=== PATIENT | female | born 1960 | race Caucasian/White ===

== ENCOUNTER 2018-01-15 11:17 | Emergency (ER) | payer OTHER, SELFPAY ==
[2018-01-15 11:27] VITALS: BP 160/79; PULSE 70; RESP 18; TEMP 36.6; O2SAT 68; BMI 101.4
--- NOTE | 2018-01-15 11:42 | DI.US.S_ITS ---
PROCEDURE: US PERIPH VENOUS LOW EXTREM LT INDICATIONS: PAIN, EDEMA TECHNIQUE: Real-time imaging, as well as color and pulse Doppler interrogation, were performed of the lower extremity deep veins from the inguinal ligament to the popliteal fossa. COMPARISON: None. FINDINGS: The deep veins are normally compressible, and free of intraluminal thrombus. Color and pulse Doppler demonstrate normal phasic intraluminal flow. There is normal augmentation response to distal compression maneuver. IMPRESSION: No visualized deep venous thrombosis. Dictated by: Kim Perez M.D. on 01/15/2018 at 12:34 Approved by: Kim Perez M.D. on 01/15/2018 at 12:35
[2018-01-15 12:14] LABS: Add Manual Diff / Slide Review NO; Basophils Percent Auto 0.3 % (0-2); Eosinophils Percent Auto 1.1 % (2-4); Hemoglobin 9.2 g/dL (12.0-16.0); Lymphocytes Percent Auto 18.6 % (25-40); Mean Corpuscular Hemoglobin 27.9 PG (26-34); Mean Corpuscular Volume 84.5 fL (80-100); Monocytes Percent Auto 5.1 % (3-14); Neutrophils Absolute Auto 6100 /uL (3000-5900); Neutrophils Percent Auto 74.9 % (50-75); Platelet Count 251 X10^3/uL (150-400); Red Blood Cell Count 3.31 X10^6/uL (4.0-5.2); Red Cell Distribution Width 14.8 % (11.6-14.8); White Blood Cell Count 8.2 X10^3/uL (4.5-11.0)
--- NOTE | 2018-01-15 13:22 | ED.EXTPRO ---
HPI - Extremity Problem General Chief complaint: Extremity Problem,Nontraumatic Stated complaint: LEFT LEG SWELLING Time Seen by Provider: 01/15/18 11:42 Source: patient Mode of arrival: ambulatory Limitations: no limitations History of Present Illness HPI Narrative: Patient presents to the emergency department today with a chief complaint of left calf swelling in the absence of injury for the past 2 days. She states actually much better now. She denies any redness or warmth at any point. She was recently admitted for an upper GI bleed a few weeks ago and by and large feels much better since then. She denies recent travel, injury or prior clots Complaint: extremity swelling Onset (ago): day(s) Pain Consistency: intermittent Location: left Quality: aching Radiation: none Relieving factors: nothing Exacerbating factors: nothing Associated symptoms: denies other symptoms Related Data Home Medications Medication Instructions Recorded Confirmed Iron (#SLOW RELEASE IRON) 50 mg PO QDAY #0 11/23/11 [MULTIVITAMIN ] #0 11/23/11 ascorbic acid (vitamin C) 1,000 mg PO QDAY #0 11/23/11 lisinopril 20 mg PO QDAY #0 12/23/17 Previous Rx's Medication Instructions Recorded omeprazole 40 mg OR QDAY #30 cap 12/25/17 sucralfate 1 gm PO QIDACHS #120 12/25/17 Allergies Allergy/AdvReac Type Severity Reaction Status Date / Time iron dextran complex Allergy Severe Abdominal Verified 01/15/18 11:32 [From Dexferrum] Pain Review of Systems Review of Systems All systems reviewed & are unremarkable except as noted in HPI and below Constitutional Denies chills, Denies fever(s), Denies lethargy and Denies weakness ENT Ears, Nose, Mouth, and Throat: Denies change in voice, Denies neck pain and Denies sore throat Cardiovascular Denies dyspnea and Denies dyspnea on exertion Respiratory Denies cough, Denies dyspnea, Denies dyspnea on exertion and Denies wheezing Genitourinary Denies hematuria, Denies flank pain, Denies urinary incontinence and Denies urinary urgency Musculoskeletal Denies neck pain Comments: Left leg swelling Neurologic Denies weakness Allergic/Immunologic Denies wheezing PFSH Social History Smoking Status: Never smoker Exam Const General: cooperative and well developed Nutritional Appearance: well nourished Orientation: alert, awake, oriented x3 and not confused HENMT Head: normocephalic and atraumatic Ears: external ears normal and TM's normal bilaterally Nose: external nose normal and No nasal discharge Face and sinus: sinuses nontender, face symmetric, no sinus tenderness and No dry mucous membranes Mouth: oral mucosae normal and moist mucous membranes Teeth and gingiva: dentition normal Throat: tonsils normal and uvula midline Chest Chest: normal inspection of the chest Resp Effort & Inspection: normal respiratory effort, able to speak in complete sentences, no respiratory distress and no use of accessory muscles Auscultation: clear to auscultation bilaterally, no rales, no rhonchi and no wheezes GI Inspection: non-distended Palpation: soft, no hepatosplenomegaly, No guarding, No pulsatile mass and No tender Auscultation: normal bowel sounds Extrem Left lower extremity: normal to inspection MDM - Extremity (Nontraumatic) Differential Diagnosis Likely cellulitis, superficial thrombophlebitis, lower extremity edema and deep vein thrombosis of lower extremity Lab Data Result diagrams: 01/15/18 12:03 Lab Results 01/15/18 Range/Units 12:03 WBC 8.2 (4.5-11.0) X10^3/uL RBC 3.31 L (4.0-5.2) X10^6/uL Hgb 9.2 L (12.0-16.0) g/dL Hct 28.0 L (36-46) % MCV 84.5 (80-100) fL MCH 27.9 (26-34) PG MCHC 33.0 (30-36) % RDW 14.8 (11.6-14.8) % Plt Count 251 (150-400) X10^3/uL Neut % (Auto) 74.9 (50-75) % Lymph % (Auto) 18.6 L (25-40) % [place] % (Auto) 5.1 (3-14) % Eos % (Auto) 1.1 L (2-4) % Baso % (Auto) 0.3 (0-2) % Neut # (Auto) 6100 H (9998-8392) /uL Imaging Data Venous US: Radiologist's impression: PROCEDURE: US PERIPH VENOUS LOW EXTREM LT INDICATIONS: PAIN, EDEMA TECHNIQUE: Real-time imaging, as well as color and pulse Doppler interrogation, were performed of the lower extremity deep veins from the inguinal ligament to the popliteal fossa. COMPARISON: None. FINDINGS: The deep veins are normally compressible, and free of intraluminal thrombus. Color and pulse Doppler demonstrate normal phasic intraluminal flow. There is normal augmentation response to distal compression maneuver. IMPRESSION: No visualized deep venous thrombosis. Dictated by: Kim Perez M.D. on 01/15/2018 at 12:34 Approved by: Kim Perez M.D. on 01/15/2018 at 12:35 Course Orders Ordered: ED Orders 01/15/18 11:42 US periph venous low extrem lt Stat 01/15/18 12:03 Complete Blood Count AUTO DIFF Stat Last Vital Signs Temp 97.8 F 01/15/18 11:27 Pulse 70 01/15/18 11:27 Resp 18 01/15/18 11:27 BP 160/79 H 01/15/18 11:27 Pulse Ox 68 L 01/15/18 11:27 Discharge Plan Departure Patient Disposition: Home, Self-Care Clinical Impression: Edema, peripheral Instructions: DI for Peripheral Edema, Unilateral Activity Restrictions/Additional Instructions: Please return to the emergency department for worsening or persistent symptoms *You have been diagnosed with [ lower extremity edema ] *What to do: Continue to elevate your left lower extremity and consider the use of a compressive dressing * continue to Take medications as directed *Follow up with your primary care provider tomorrow as planned *Return to ER if you should have [such as] [or] any new, worsening or concerning symptoms Prescriptions: No Action ascorbic acid (vitamin C) 500 MG tablet 1,000 mg PO QDAY Qty: 0 RF: 0 Iron (#SLOW RELEASE IRON) 50 mg PO QDAY Qty: 0 RF: 0 [MULTIVITAMIN ] Qty: 0 RF: 0 lisinopril 20 MG tablet 20 mg PO QDAY Qty: 0 RF: 0 sucralfate 1 GM tablet 1 gm PO QIDACHS Qty: 120 RF: 1 omeprazole 40 MG capsule,delayed release(DR/EC) 40 mg OR QDAY Qty: 30 RF: 2
[2018-01-15 13:25] VITALS: PULSE 62; RESP 16; O2SAT 100
== END 2018-01-15 13:30 | disposition home or self-care (01) ==
PROVIDERS: Emergency Provider Emergency Medicine
DX: R60.9 Edema, unspecified (principal)
CPT/HCPCS: 36415; 85025; 93971; 99282; 99284

== ENCOUNTER 2018-10-26 05:21 | Observation (INO) | payer OTHER, SELFPAY ==
[2018-10-26] VITALS (24 sets, daily range): BP systolic 76–152; BP diastolic 34–90; PULSE 61–84; RESP 11–18; TEMP 36.1–37.1; O2SAT 97–100; BMI 44.7; BMI 44.6
--- NOTE | 2018-10-26 05:50 | ED_ITS ---
HPI - GI Bleed General Chief complaint: GI Bleed Stated complaint: rectal bleeding Time Seen by Provider: 10/26/18 05:34 Source: patient and family Mode of arrival: ambulatory Limitations: no limitations History of Present Illness HPI Narrative: This is a 58-year-old female who comes in with complaint of black bowel movements. She states that she woke up this way not have a bowel movement and it was dark and blackish. She states that she had 3 episodes. She has a history of gastric bypass and had similar symptoms in the last year. She states she was here they took her to the OR and found to spots that she describes as ulcers bleeding on the stomach. Had cautery patient was placed on omeprazole or similar medication. She is not taking the omeprazole anymore. She is not taking any NSAIDs. She felt sort of pale and dizzy but no chest pain, shortness of breath. She has not had any vomiting. She is not feeling nauseated currently. She denies any tobacco, occasionally uses alcohol, denies any illi cit. Primary care is through the [facility]. Related Data Home Medications Medication Instructions Recorded Confirmed Iron (#SLOW RELEASE IRON) 50 mg PO QDAY #0 11/23/11 [MULTIVITAMIN ] #0 11/23/11 ascorbic acid (vitamin C) 1,000 mg PO QDAY #0 11/23/11 lisinopril 20 mg PO QDAY #0 12/23/17 Previous Rx's Medication Instructions Recorded omeprazole 40 mg OR QDAY #30 cap 12/25/17 sucralfate 1 gm PO QIDACHS #120 12/25/17 Allergies Allergy/AdvReac Type Severity Reaction Status Date / Time iron dextran complex Allergy Severe Abdominal Verified 01/15/18 11:32 [From Dexferrum] Pain Review of Systems Review of Systems ROS Unobtainable: All systems reviewed & are unremarkable except as noted in HPI and below Constitutional Denies chills, Denies fever(s), Denies lethargy and Reports weakness Cardiovascular Denies chest pain, Denies syncope, Denies rapid heart rate, Denies irregular heart rhythm, Reports lightheadedness, Denies palpitations, Denies dyspnea, Denies dyspnea on exertion and Denies orthopnea Respiratory Denies dyspnea and Denies dyspnea on exertion Gastrointestinal Gastrointestinal: Denies abdominal pain, Reports melena, Denies change in bowel habits, Denies constipation, Denies cramping, Denies diarrhea, Denies nausea and Denies vomiting Genitourinary Denies hematuria, Denies urinary frequency, Denies dysuria, Denies flank pain, R eports urinary incontinence (Occasionally, chronic) and Denies urinary urgency Musculoskeletal Denies back pain Neurologic Denies syncope and Reports weakness Endocrine Denies palpitations Hematologic/Lymphatic Denies easy bleeding and Denies easy bruising PFSH Medical History Gastric ulcer (Acute) Hypertension (Acute) Surgical History H/O gastric bypass (Acute) Social History Smoking Status: Never smoker alcohol intake: current substance use type: does not use Social History Smoking Status: Never smoker alcohol intake: current substance use type: does not use Exam Narrative Exam Narrative: GEN: Obese female, alert and oriented x 3, patient appears to be in mild distress. Patient does appear pale. HEENT: Atraumatic, pupils are equal round reactive to light, extraocular movements are intact, nares are clear, TMs are clear with no fluid, there is some conjunctival pallor. Throat is clear without any exudates, erythema, tonsillar enlargement or uvular deviation HEART: Regular rate and rhythm without murmur, clicks, rubs. No carotid bruits, pulses are equal in upper and lower extremities LUNGS:Lungs clear to auscultation, no wheezes, rales, crackles, chest moves symmetrically ABD:bowel sounds normal, soft, non-tender, no guarding, rebound, rigidity, no masses noted, no hepatosplenomegaly. Stool occult is positive for blood. Under OMEGA appreciate a does not have any active or bright red bleeding. :No CVA tenderness. MSCL: Non-tender, no muscle atrophy, muscles strength 5/5 upper and lower extremities, full range of motion, normal gait NEURO:CN 2-12 intact, sensation normal, reflexes 2/4 upper and lower extremities. finger nose finger test normal, heel villaseñor test normal, romberg normal Initial Vital Signs Initial Vital Signs: Vital Signs Temperature 97.7 F 10/26/18 05:23 Pulse Rate 70 10/26/18 05:23 Respiratory Rate 12 10/26/18 05:23 Blood Pressure 100/53 L 10/26/18 05:23 Pulse Oximetry 99 10/26/18 05:23 Course Orders Ordered: ED Orders 10/26/18 05:45 Complete Blood Count AUTO DIFF Stat Comprehensive Metabolic Panel Stat Lipase Stat Packed Cells Stat Partial Thromboplastin Time Stat Prothrombin Time INR Stat Type and Screen Stat Pantoprazole Sodium 80 mg/ (Sodium Chloride) 100 mls @ 10 mls/hr IV CONT RANULFO Last Admin: 10/26/18 06:09 Dose: 8 mg/hr, 10 mls/hr Sodium Chloride (Normal Saline 0.9%) 1,000 mls @ 150 mls/hr IV CONT RANULFO Last Admin: 10/26/18 05:59 Dose: 150 mls/hr Discontinued Medications Pantoprazole Sodium (Protonix) 80 mg IV NOW ONE Stop: 10/26/18 05:44 Last Admin: 10/26/18 05:58 Dose: 80 mg Vital Signs - 8 hr 10/26/18 05:23 10/26/18 06:01 10/26/18 06:28 Temperature 97.7 F Pulse Rate 70 66 62 Respiratory Rate 12 13 13 Blood Pressure 100/53 L Blood Pressure [Left Arm] 82/46 L 76/47 L Pulse Oximetry 99 100 100 10/26/18 06:36 Temperature Pulse Rate 61 Respiratory Rate 12 Blood Pressure Blood Pressure [Left Arm] 85/40 L Pulse Oximetry 99 MDM - GI Bleed Lab Data Attestation: I reviewed the patient's lab results. Result diagrams: 10/26/18 05:45 10/26/18 05:45 Lab Results 10/26/18 10/26/18 10/26/18 Range/Units 05:45 05:45 05:45 WBC 5.8 (4.5-11.0) X10^3/uL RBC 2.72 L (4.0-5.2) X10^6/uL Hgb 7.6 L (12.0-16.0) g/dL Hct 23.3 L (36-46) % MCV 85.7 (80-100) fL MCH 27.9 (26-34) PG MCHC 32.6 (30-36) % RDW 15.6 H (11.6-14.8) % Plt Count 232 (150-400) X10^3/uL Neut % (Auto) 79.7 H (50-75) % Lymph % (Auto) 14.7 L (25-40) % [place] % (Auto) 4.0 (3-14) % Eos % (Auto) 1.3 L (2-4) % Baso % (Auto) 0.3 (0-2) % Neut # (Auto) 4600 (5525-4230) /uL Lymph # (Auto) 900 L (2922-3059) /uL [place] # (Auto) 200 (0-900) /uL Eos # (Auto) 100 (0-450) /uL Baso # (Auto) 0 (0-100) /uL PT 11.6 (10.1-12.7) SECONDS INR 1.0 (0.9-1.3) APTT 28 (26.4-36.2) SECONDS Sodium 136 L (137-145) mmol/L Potassium 4.5 (3.4-5.1) mmol/L Chloride 101 (98-107) mmol/L Carbon Dioxide 27 (22-32) mmol/L BUN 39 H (7-17) mg/dL Creatinine 0.60 (0.52-1.04) mg/dL Estimated GFR > 60.0 (>60) mL/min BUN/Creatinine Ratio 65.0 H (6-22) Glucose 132 H (70-100) mg/dL Calcium 8.6 (8.4-10.2) mg/dL Total Bilirubin 0.3 (0.2-1.3) mg/dL AST 21 (14-36) IU/L ALT 26 (9-52) IU/L Alkaline Phosphatase 60 (38-126) U/L Total Protein 5.9 L (6.3-8.2) g/dL Albumin 3.3 L (3.5-5.0) g/dL Globulin 2.6 (1.7-4.1) g/dL Albumin/Globulin Ratio 1.3 (1.0-2.8) Lipase 33 (23-300) U/L Blood Type Antibody Screen Crossmatch 10/26/18 Range/Units 05:45 WBC (4.5-11.0) X10^3/uL RBC (4.0-5.2) X10^6/uL Hgb (12.0-16.0) g/dL Hct (36-46) % MCV (80-100) fL MCH (26-34) PG MCHC (30-36) % RDW (11.6-14.8) % Plt Count (150-400) X10^3/uL Neut % (Auto) (50-75) % Lymph % (Auto) (25-40) % [place] % (Auto) (3-14) % Eos % (Auto) (2-4) % Baso % (Auto) (0-2) % Neut # (Auto) (7899-9934) /uL Lymph # (Auto) (6125-5366) /uL [place] # (Auto) (0-900) /uL Eos # (Auto) (0-450) /uL Baso # (Auto) (0-100) /uL PT (10.1-12.7) SECONDS INR (0.9-1.3) APTT (26.4-36.2) SECONDS Sodium (137-145) mmol/L Potassium (3.4-5.1) mmol/L Chloride (98-107) mmol/L Carbon Dioxide (22-32) mmol/L BUN (7-17) mg/dL Creatinine (0.52-1.04) mg/dL Estimated GFR (>60) mL/min BUN/Creatinine Ratio (6-22) Glucose (70-100) mg/dL Calcium (8.4-10.2) mg/dL Total Bilirubin (0.2-1.3) mg/dL AST (14-36) IU/L ALT (9-52) IU/L Alkaline Phosphatase (38-126) U/L Total Protein (6.3-8.2) g/dL Albumin (3.5-5.0) g/dL Globulin (1.7-4.1) g/dL Albumin/Globulin Ratio (1.0-2.8) Lipase (23-300) U/L Blood Type O Positive Antibody Screen Negative Crossmatch See Detail Point of Care Testing Stool Occult Blood Negative MDM Narrative Medical decision making narrative: Patient hgb today is 7.6 down last 9.2 01/15/18. Patient Hgb was in 7 range last time when in hospital in December 2017. PRBC's ordered as patient has positive stool occult and lightheaded. Discussed with Dr. Lindquist, he is happy to see the patient, asks that she be admitted to medicine. Protonix 80 given followed by gtt. coag's normal range, BUN elevated consistent with GI bleed. Spoke with Hospitalist Vincenzo, she asks that patient stays in the emergency department until Dr. Oropeza comes on to service as she will be actually seeing the patient. She does ask for ICU admission. She did request fluid bolus based on patient's pressure although discussed I am allowing for permissive hypotension but patient is getting fluids. Discussed with patient, consent for blood given. Patient signed out to Dr. Aceves while awaiting ICU bed and Dr. Oropeza to be olegario ilable for evaluation. Discharge Plan Departure Patient Disposition: Admitted As Inpatient Clinical Impression: GI bleed Admit Date/Time: 10/26/18 06:30 Admit Provider: Jennifer Loya
[2018-10-26 05:58] LABS: Basophils Absolute Auto 0 /uL (0-100); Basophils Percent Auto 0.3 % (0-2); Eosinophils Absolute Auto 100 /uL (0-450); Eosinophils Percent Auto 1.3 % (2-4); Hemoglobin 7.6 g/dL (12.0-16.0); Lymphocytes Absolute Auto 900 /uL (1100-4500); Mean Corpuscular HGB Conc 32.6 % (30-36); Mean Corpuscular Hemoglobin 27.9 PG (26-34); Mean Corpuscular Volume 85.7 fL (80-100); Monocytes Absolute Auto 200 /uL (0-900); Neutrophils Absolute Auto 4600 /uL (1500-7000); White Blood Cell Count 5.8 X10^3/uL (4.5-11.0)
[2018-10-26] MEDS: PANTOPRAZOLE 40 MG VIAL 80 MG IV (05:58)
[2018-10-26] MEDS: SODIUM CHLORIDE 0.9% 1,000 ML 150 ML IV (05:59)
[2018-10-26 06:03] LABS: Prothrombin Time 11.6 SECONDS (10.1-12.7)
[2018-10-26 06:05] LABS: Add Manual Diff / Slide Review NO; Hematocrit 23.3 % (36-46); Lymphocytes Percent Auto 14.7 % (25-40); Neutrophils Percent Auto 79.7 % (50-75); Platelet Count 232 X10^3/uL (150-400); Red Blood Cell Count 2.72 X10^6/uL (4.0-5.2); Red Cell Distribution Width 15.6 % (11.6-14.8)
[2018-10-26 06:06] LABS: PTT Partial Thromboplastin Tim 28 SECONDS (26.4-36.2)
[2018-10-26 06:09] LABS: Alanine Aminotransferase 26 IU/L (9-52); Albumin 3.3 g/dL (3.5-5.0); Albumin Globulin Ratio 1.3 (1.0-2.8); Alkaline Phosphatase 60 U/L (38-126); Aspartate Aminotransferase 21 IU/L (14-36); Bilirubin Total 0.3 mg/dL (0.2-1.3); Blood Urea Nitrogen 39 mg/dL (7-17); Calcium 8.6 mg/dL (8.4-10.2); Carbon Dioxide 27 mmol/L (22-32); Chloride 101 mmol/L (98-107); Estimated Glomerular Filt Rate > 60.0 mL/min (>60); Globulin 2.6 g/dL (1.7-4.1); Glucose 132 mg/dL (70-100); HEMOLYSIS < 15 (0-50); Lipase 33 U/L (23-300); Potassium 4.5 mmol/L (3.4-5.1); Sodium 136 mmol/L (137-145); Total Protein 5.9 g/dL (6.3-8.2)
[2018-10-26] MEDS: PANTOPRAZOLE 80 MG in SODIUM CHLORIDE 0.9% 100 ML 10 ML IV ×2 (06:09→20:04)
--- NOTE | 2018-10-26 08:25 | P.HP_ITS ---
History of Present Illness Date Patient Seen: 10/26/18 Chief complaint: rectal bleeding Narrative: Bernie Cabrera is a 58-year-old female with a past medical history significant for hypertension, morbid obesity status post gastric bypass, iron deficiency anemia and previous peptic ulcer did secondary to NSAID use who presented to the ED after 3 episodes of melena with associated lightheadedness and diaphoresis. The patient reports that she woke at 3:00 a.m. this morning and had 3 bowel movements that were black and tarry. She felt lightheaded and was diaphoretic. She reports that this was similar to her previous episode of GI bleeding last year. She felt nauseous on the way to the hospital. She denies abdominal pain. She does not take NSAIDs or aspirin. She currently denies headache, vision changes, lightheadedness, dizziness, chest pain, shortness of breath, abdominal pain, nausea, vomiting, fever, chills, dysuria, or diarrhea. She denies hemoptysis, hematemesis, or hematochezia. She has no other complaints. Patient History Medical History Gastric ulcer (Acute) Hernia of abdominal wall (Acute) Hypertension (Acute) Morbid obesity (Acute) Surgical History H/O gastric bypass (Acute) History of 3 sections (Acute) History of hernia repair (Acute) Social History Smoking Status: Never smoker alcohol intake: current substance use type: does not use Family & Social History Family History Mother Prediabetes Father Unknown family medical history Brother No problems noted. Brother No problems noted. Sister No problems noted. Sister No problems noted. Safety & Behavioral: Feels Safe in Current Yes Environment Tobacco & Substance use: Smoking Status Never smoker alcohol intake current alcohol intake frequency holiday/special occasion Substance Use Type does not use The patient has been for 35 years. She has 2 sons and 1 daughter. Her daughter has history of congenital heart disease and seizure disorder. She works at [employer]. She does not use alcohol, tobacco or recreational drugs. Meds Home Medications Medication Instructions Recorded Confirmed Type Iron (#SLOW RELEASE IRON) 50 mg PO QDAY #0 11/23/11 History [MULTIVITAMIN ] #0 11/23/11 History ascorbic acid (vitamin C) 1,000 mg PO QDAY #0 11/23/11 10/26/18 History lisinopril 20 mg PO QDAY #0 12/23/17 10/26/18 History turmeric PO DAILY 10/26/18 History Allergies Allergy/AdvReac Type Severity Reaction Status Date / Time iron dextran complex Allergy Severe Abdominal Verified 01/15/18 11:32 [From Dexferrum] Pain Review of Systems Review of Systems A 10 system comprehensive review of systems was conducted with the patient and found to be negative except as above in the History of Present Illness. Exam Vital Signs (past 8 hours): - 10/26/18 05:23 10/26/18 06:01 10/26/18 06:28 Temperature 97.7 F Pulse Rate 70 66 62 Respiratory Rate 12 13 13 Blood Pressure 100/53 L Blood Pressure [Left Arm] 82/46 L 76/47 L Pulse Oximetry 99 100 100 10/26/18 06:36 10/26/18 06:59 10/26/18 07:16 Temperature 97.9 F 97.8 F Pulse Rate 61 63 61 Respiratory Rate 12 12 12 Blood Pressure 85/40 L 98/34 L Blood Pressure [Left Arm] 85/40 L Pulse Oximetry 99 10/26/18 07:45 Temperature 98.8 F Pulse Rate 64 Respiratory Rate 12 Blood Pressure 109/49 L Blood Pressure [Left Arm] Pulse Oximetry Oxygen Delivery Method Room Air Narrative Exam Narrative: General: Middle-aged female lying in bed and in no acute distress, well- developed, well-nourished, appropriately interactive. HEENT: Normocephalic, atraumatic. External ears without defect. Pupils equal, round, and reactive to light. Anicteric sclerae, moist conjunctivae, and no lid lag. Oropharynx free of erythema and cobble stoning with dry mucous membranes. Neck: Supple with full range of motion. No lymphadenopathy or thyromegaly. Cardiovascular: Regular rate and rhythm with diastolic murmur at left sternal border. No rubs, or gallops appreciated. Pulmonary: Clear to auscultation bilaterally without crackles, wheezes, or rhonchi. Normal respiratory effort with no use of accessory muscles. Abdomen: Soft, bowel sounds present, mild tenderness to palpation in epigastrium, nondistended. No hepatosplenomegaly or masses appreciated. Extremities: No clubbing, cyanosis, or edema. Skin: Normal temperature, turgor, and texture; no rash, ulcers, or subcutaneous nodules appreciated. Neurological: Cranial nerves grossly intact. Normal muscle strength, tone, and bulk. Reflexes, coordination, and sensory function within normal limits. No known gait impairment. Psychiatric: Normal mood and affect. Alert and oriented to person, place, and time. Objective Labs Result Diagrams: 10/26/18 05:45 10/26/18 05:45 Labs: Laboratory Results - last 24 hr 10/26/18 10/26/18 10/26/18 05:45 05:45 05:45 WBC 5.8 RBC 2.72 L Hgb 7.6 L Hct 23.3 L MCV 85.7 MCH 27.9 MCHC 32.6 RDW 15.6 H Plt Count 232 Neut % (Auto) 79.7 H Lymph % (Auto) 14.7 L [place] % (Auto) 4.0 Eos % (Auto) 1.3 L Baso % (Auto) 0.3 Neut # (Auto) 4600 Lymph # (Auto) 900 L [place] # (Auto) 200 Eos # (Auto) 100 Baso # (Auto) 0 PT 11.6 INR 1.0 APTT 28 Sodium 136 L Potassium 4.5 Chloride 101 Carbon Dioxide 27 BUN 39 H Creatinine 0.60 Estimated GFR > 60.0 BUN/Creatinine Ratio 65.0 H Glucose 132 H Calcium 8.6 Total Bilirubin 0.3 AST 21 ALT 26 Alkaline Phosphatase 60 Total Protein 5.9 L Albumin 3.3 L Globulin 2.6 Albumin/Globulin Ratio 1.3 Lipase 33 Blood Type Antibody Screen Crossmatch 10/26/18 05:45 WBC RBC Hgb Hct MCV MCH MCHC RDW Plt Count Neut % (Auto) Lymph % (Auto) [place] % (Auto) Eos % (Auto) Baso % (Auto) Neut # (Auto) Lymph # (Auto) [place] # (Auto) Eos # (Auto) Baso # (Auto) PT INR APTT Sodium Potassium Chloride Carbon Dioxide BUN Creatinine Estimated GFR BUN/Creatinine Ratio Glucose Calcium Total Bilirubin AST ALT Alkaline Phosphatase Total Protein Albumin Globulin Albumin/Globulin Ratio Lipase Blood Type O Positive Antibody Screen Negative Crossmatch See Detail Assessment & Plan Assessment & Plan narrative: Bernie Cabrera is a 58-year-old female with a past medical history significant for hypertension, morbid obesity status post gastric bypass, iron deficiency anemia and previous peptic ulcer did secondary to NSAID use who presented to the ED after 3 episodes of melena with associated lightheadedness and diaphoresis. 1. Acute upper GI bleed, present on admission. Active. -Patient presented after 3 episodes of melena with associated lightheadedness and diaphoresis. -Patient has history of peptic ulcer disease secondary to NSAID use in the past. No NSAIDs or aspirin use now. The patient also has history of gastric bypass with possible complication of secondary ulcerations? -Initial hemoglobin 7.6. Patient receiving 2 units PRBC. -Started on PPI gtt and will continue pending recommendations of General surgery. -continue to monitor vital signs closely on telemetry. -Will start maintenance fluids with normal saline at 100 mL/hr after blood transfusion. -General surgery, Dr. Lindquist, was consulted by the ED and plans for upper endoscopy today. Patient is NPO. We appreciate his time and care of the patient. 2. Acute blood loss anemia on chronic iron deficiency anemia, present on admission. Active. -Patient receiving 2 units PRBC. -Treat underlying cause as above. 3. Hypertension, chronic, present on admission. Stable. -Well controlled on lisinopril 20 mg daily. -Hold antihypertensive for now. 4. Morbid obesity status post gastric bypass, chronic, present on admission. Stable. -BMI 44.6. -[employer] patient on lifestyle modification including diet and exercise. Patient is admitted under inpatient status with expected length of stay greater than 2 midnights due to severity of presenting symptoms, risk of adverse event, and complexity of treatment plan.
--- NOTE | 2018-10-26 09:45 | PC.NURSE ---
Admission Note: Pt admitted to ICU from ER for bloody stools. Pt denies nausea and emesis. Abdomen soft, tender in LUQ. Positive BTs. Pt remains NPO. Pt arrives with VSS, NSR, HR 60s. BP 117/80. Pt denies chest pain, SOB or other discomfort. Protonix gtts running and 1st unit of blood running when pt arrived from ER. Consent signed and on chart. Pt ambulated to bathroom, denies dizziness. No change in VS with ambulation. Pt remains on RA, SPO2 100%. Denies pain currently but states that she has chronic pain in her L knee d/t prior injury. Pt otherwise with no complaints. Ambulating to bathroom, voiding without difficulty. No further BMs at this time.
[2018-10-26] MEDS: SODIUM CHLORIDE 0.9% 1,000 ML 100 ML IV (13:30)
--- NOTE | 2018-10-26 13:32 | PM.CN ---
History of Present Illness Date Patient Seen: 10/26/18 Time Patient Seen: 13:32 Chief complaint: rectal bleeding Reason for consult: Melena Requesting provider: Emerald Brooks Narrative: The patient is a woman who has had multiple abdominal procedures. Two thousand eighteen she was admitted with an Aleve related upper GI bleed. She has not been on nonsteroidal since. She stop taking proton pump inhibitors sometime in the past. This morning she woke up to having black bowel movement that was diarrhea. She was feeling weak and a little dizzy she came into the emergency room and was admitted. Of significance she has had a gastric bypass apparently has a gastrojejunostomy. She had a hernia which I repaired in 2011. I had to remove old mesh to repair it. [facility] Medical History Gastric ulcer (Acute) Hernia of abdominal wall (Acute) Hypertension (Acute) Knee pain, chronic (Acute) Morbid obesity (Acute) Surgical History H/O gastric bypass (Acute) History of 3 sections (Acute) History of hernia repair (Acute) Family History Mother Prediabetes Father Unknown family medical history Brother No problems noted. Brother No problems noted. Sister No problems noted. Sister No problems noted. Social History household members: spouse, family and children Smoking Status: Never smoker alcohol intake: current substance use type: does not use Family History Mother Prediabetes Father Unknown family medical history Brother No problems noted. Brother No problems noted. Sister No problems noted. Sister No problems noted. Social History household members: spouse, family and children Smoking Status: Never smoker alcohol intake: current substance use type: does not use Meds Home Medications Medication Instructions Recorded Confirmed Type Iron (#SLOW RELEASE IRON) 50 mg PO QDAY #0 11/23/11 History [MULTIVITAMIN ] #0 11/23/11 History ascorbic acid (vitamin C) 1,000 mg PO QDAY #0 11/23/11 10/26/18 History lisinopril 20 mg PO QDAY #0 12/23/17 10/26/18 History turmeric PO DAILY 10/26/18 History Allergies Allergy/AdvReac Type Severity Reaction Status Date / Time iron dextran complex Allergy Severe Abdominal Verified 01/15/18 11:32 [From Dexferrum] Pain Review of Systems Review of Systems No chest pain at this time no breathing difficulties. She does get short of breath with exertion. Normally she does not have blood in her stool. No seizures or blackouts. Exam Vital Signs (past 8 hours): - 10/26/18 06:01 10/26/18 06:28 10/26/18 06:36 Temperature Pulse Rate 66 62 61 Respiratory Rate 13 13 12 Blood Pressure Blood Pressure [Left Arm] 82/46 L 76/47 L 85/40 L Pulse Oximetry 100 100 99 10/26/18 06:59 10/26/18 07:16 10/26/18 07:45 Temperature 97.9 F 97.8 F 98.8 F Pulse Rate 63 61 64 Respiratory Rate 12 12 12 Blood Pressure 85/40 L 98/34 L 109/49 L Blood Pressure [Left Arm] Pulse Oximetry 10/26/18 08:31 10/26/18 10:20 10/26/18 10:46 Temperature 97.7 F 97 F L 97 F L Pulse Rate 64 71 71 Respiratory Rate 18 17 17 Blood Pressure 117/80 108/62 108/62 Blood Pressure [Left Arm] Pulse Oximetry 100 10/26/18 11:07 Temperature 97.7 F Pulse Rate 72 Respiratory Rate 12 Blood Pressure 119/55 L Blood Pressure [Left Arm] Pulse Oximetry Oxygen Delivery Method Room Air Narrative Exam Narrative: Operative no apparent distress. Quite obese. Lungs are clear to auscultation no rales or rhonchi. Heart regular rate and rhythm no murmur or gallop. Abdomen is protuberant soft nontender without mass. Objective Labs Result Diagrams: 10/26/18 05:45 10/26/18 05:45 Labs: Laboratory Results - last 24 hr 10/26/18 10/26/18 10/26/18 05:45 05:45 05:45 WBC 5.8 RBC 2.72 L Hgb 7.6 L Hct 23.3 L MCV 85.7 MCH 27.9 MCHC 32.6 RDW 15.6 H Plt Count 232 Neut % (Auto) 79.7 H Lymph % (Auto) 14.7 L [place] % (Auto) 4.0 Eos % (Auto) 1.3 L Baso % (Auto) 0.3 Neut # (Auto) 4600 Lymph # (Auto) 900 L [place] # (Auto) 200 Eos # (Auto) 100 Baso # (Auto) 0 PT 11.6 INR 1.0 APTT 28 Sodium 136 L Potassium 4.5 Chloride 101 Carbon Dioxide 27 BUN 39 H Creatinine 0.60 Estimated GFR > 60.0 BUN/Creatinine Ratio 65.0 H Glucose 132 H Calcium 8.6 Total Bilirubin 0.3 AST 21 ALT 26 Alkaline Phosphatase 60 Total Protein 5.9 L Albumin 3.3 L Globulin 2.6 Albumin/Globulin Ratio 1.3 Lipase 33 Blood Type Antibody Screen Crossmatch 10/26/18 05:45 WBC RBC Hgb Hct MCV MCH MCHC RDW Plt Count Neut % (Auto) Lymph % (Auto) [place] % (Auto) Eos % (Auto) Baso % (Auto) Neut # (Auto) Lymph # (Auto) [place] # (Auto) Eos # (Auto) Baso # (Auto) PT INR APTT Sodium Potassium Chloride Carbon Dioxide BUN Creatinine Estimated GFR BUN/Creatinine Ratio Glucose Calcium Total Bilirubin AST ALT Alkaline Phosphatase Total Protein Albumin Globulin Albumin/Globulin Ratio Lipase Blood Type O Positive Antibody Screen Negative Crossmatch See Detail Assessment & Plan Assessment & Plan narrative: Probable upper GI bleed. Recommend EGD. I have discussed procedure with the patient. She is familiar with it. Risks of bleeding, perforation were discussed. She appears to understand and wishes to proceed. We will do later today in the operating room. Will require anesthesia because of the need to protect her airway.
[2018-10-26 16:28] LABS: Hematocrit 27.1 % (36-46); Hemoglobin 9.1 g/dL (12.0-16.0)
--- NOTE | 2018-10-26 18:13 | SUR.OPER ---
SEE ANESTHSIA RECORD FOR EPINEPHRINE AMOUNTS
--- NOTE | 2018-10-26 18:15 | PM.OP.ENDO ---
Operative Date/Time/Diagnoses Date of procedure: 10/26/18 Time of procedure: 18:15 Pre-op diagnosis: Upper GI bleed Post-op diagnosis: same (Marginal ulcers at anastomosis.) Procedure & Clinicians Study performed: EGD with epinephrine injection Same procedure as scheduled: Yes Surgeon: Benito Lindquist Procedure Notes SCOAP/Timeout: Performed Procedure in detail: The patient was placed supine on the bed underwent monitored anesthesia care. They were involved because of concerns over the potential for blood and for her multiple medical issues. Bite block was inserted after topical anesthetic was applied to the oropharynx. Scope was advanced through the bite block into the esophagus esophagus was normal GE junction at 38 cm. Gastric remnant was noted. The gastrojejunostomy which appears to probably be a [id number] Johnny-en-Y was examined. The E Jorge Alberto limb was normal to 60 cm from the incisors. The remainder of the stomach was normal but right at the anastomosis there were 2 ulcers that appeared to be confluent. There is fibrinous exudate over their surfaces. I chose to inject around them with epinephrine. 1 cc was injected in 3 locations. [id number] solution. There was blanching of the surrounding tissues. The scope was removed and the patient appeared to tolerate the procedure well. No tachycardia was noted. Scope withdrawal time: Not applicable Sedation minutes: 0 (Monitored anesthesia care) Findings: gastric ulcer Specimen(s): none sent Complications: none Recommendations: Continue medication(s) (Continue proton pump inhibitor)
--- NOTE | 2018-10-26 18:27 | P.OP.ENDO_ITS ---
Operative Date/Time/Diagnoses Date of procedure: 10/26/18 Time of procedure: 18:15 Pre-op diagnosis: Upper GI bleed Post-op diagnosis: same (Marginal ulcers at anastomosis.) Procedure & Clinicians Study performed: EGD with epinephrine injection Same procedure as scheduled: Yes Surgeon: Benito Lindquist Procedure Notes SCOAP/Timeout: Performed Procedure in detail: The patient was placed supine on the bed underwent monitored anesthesia care. They were involved because of concerns over the potential for blood and for her multiple medical issues. Bite block was inserted after topical anesthetic was applied to the oropharynx. Scope was advanced through the bite block into the esophagus esophagus was normal GE junction at 38 cm. Gastric remnant was noted. The gastrojejunostomy which appears to probably be a [id number] Johnny-en-Y was examined. The E Jorge Alberto li mb was normal to 60 cm from the incisors. The remainder of the stomach was normal but right at the anastomosis there were 2 ulcers that appeared to be confluent. There is fibrinous exudate over their surfaces. I chose to inject around them with epinephrine. 1 cc was injected in 3 locations. [id number] solution. There was blanching of the surrounding tissues. The scope was removed and the patient appeared to tolerate the procedure well. No tachycardia was noted. Scope withdrawal time: Not applicable Sedation minutes: 0 (Monitored anesthesia care) Findings: gastric ulcer Specimen(s): none sent Complications: none Recommendations: Continue medication(s) (Continue proton pump inhibitor)
[2018-10-26] MEDS: LACTATED RINGERS 1,000 ML 42 ML IV (20:05)
--- NOTE | 2018-10-26 22:01 | PC.NURSE ---
Pt transferred from ICU to room 212 via bed. Pt is able to ambulate independently from ICU bed to floor care bed prior to transfer. Oriented to room upon arrival. Pt is alert, oriented and conversant.
[2018-10-27 03:00] VITALS: BP 124/67; PULSE 72; RESP 15; TEMP 36.7; O2SAT 92
[2018-10-27 05:53] LABS: Add Manual Diff / Slide Review NO; Basophils Absolute Auto 0 /uL (0-100); Basophils Percent Auto 0.3 % (0-2); Eosinophils Absolute Auto 100 /uL (0-450); Eosinophils Percent Auto 1.2 % (2-4); Hematocrit 25.3 % (36-46); Hemoglobin 8.3 g/dL (12.0-16.0); Lymphocytes Absolute Auto 1800 /uL (1100-4500); Lymphocytes Percent Auto 31.4 % (25-40); Mean Corpuscular HGB Conc 32.8 % (30-36); Mean Corpuscular Hemoglobin 28.6 PG (26-34); Mean Corpuscular Volume 87.1 fL (80-100); Monocytes Absolute Auto 400 /uL (0-900); Monocytes Percent Auto 6.2 % (3-14); Neutrophils Absolute Auto 3500 /uL (1500-7000); Neutrophils Percent Auto 60.9 % (50-75); Platelet Count 197 X10^3/uL (150-400); Red Blood Cell Count 2.91 X10^6/uL (4.0-5.2); Red Cell Distribution Width 15.7 % (11.6-14.8); White Blood Cell Count 5.7 X10^3/uL (4.5-11.0)
[2018-10-27 06:03] LABS: BUN Creatinine Ratio 36.7 (6-22); Blood Urea Nitrogen 22 mg/dL (7-17); Calcium 8.5 mg/dL (8.4-10.2); Carbon Dioxide 24 mmol/L (22-32); Chloride 106 mmol/L (98-107); Estimated Glomerular Filt Rate > 60.0 mL/min (>60); Glucose 86 mg/dL (70-100); HEMOLYSIS < 15 (0-50); Potassium 3.7 mmol/L (3.4-5.1); Sodium 137 mmol/L (137-145)
[2018-10-27] MEDS: PANTOPRAZOLE 80 MG in SODIUM CHLORIDE 0.9% 100 ML 10 ML IV (07:58)
[2018-10-27 08:00] VITALS: O2SAT 96
[2018-10-27 08:15] VITALS: BP 162/77; PULSE 75; RESP 20; TEMP 36.7; O2SAT 99
--- NOTE | 2018-10-27 09:48 | PM.DS.1 ---
History of Present Illness Date Patient Seen: 10/27/18 Chief complaint: rectal bleeding Narrative: This is a 58-year-old female who comes in with complaint of black bowel movements. She states that she woke up this way not have a bowel movement and it was dark and blackish. She states that she had 3 episodes. She has a history of gastric bypass and had similar symptoms in the last year. She states she was here they took her to the OR and found to spots that she describes as ulcers bleeding on the stomach. Had cautery patient was placed on omeprazole or similar medication. She is not taking the omeprazole anymore. She is not taking any NSAIDs. She felt sort of pale and dizzy but no chest pain, shortness of breath. She has not had any vomiting. She is not feeling nauseated currently. She denies any tobacco, occasionally uses alcohol, denies any illicit. Primary care is through the [facility]. Discharge Providers Date of admission: 10/26/18 06:30 Discharge provider: Ani Murray MD Discharge Date: 10/27/18 Summary Discharge Diagnosis: 1. Acute blood loss anemia 2. Confluent gastric ulcer 3. Hypertension 4. Hiatal hernia 5. Morbid obesity 6. History of gastric bypass Hospital Course: The patient is a 58-year-old female with a history of gastric bypass surgery and prior history of gastric ulcers. She was admitted to the hospital for evaluation of melanotic stools. The patient received 2 units of packed RBCs without difficulty. She was seen by Dr. Lindquist where an upper endoscopy was obtained. The upper endoscopy revealed too compliant ulcers at the anastomotic site. These were injected with epinephrine. Patient's diet was advanced. She tolerated this without difficulty was deemed appropriate for discharge home. Status at Discharge Functional status at discharge: independent ambulation Overall status at discharge: patient is back to baseline Time Spent with Patient Less than 30 minutes Exam Vital Signs (past 8 hours): - 10/27/18 03:00 10/27/18 08:00 10/27/18 08:15 Temperature 98.0 F 98.1 F Pulse Rate 72 75 Respiratory Rate 15 20 Blood Pressure 124/67 162/77 H Pulse Oximetry 92 96 99 Oxygen Delivery Method Room Air Oxygen Flow Rate 0 Narrative Exam Narrative: Pleasant female resting comfortably in no obvious distress Lungs: Clear to auscultation Cardiac exam: Regular rate and rhythm normal S1 and S2 with a 3/6 systolic ejection murmur Abdomen: Soft nontender nondistended, no hepatosplenomegaly Extremities: No edema Objective Labs Result Diagrams: 10/27/18 05:21 10/27/18 05:21 Labs: Laboratory Results - last 24 hr 10/26/18 10/26/18 10/26/18 05:45 13:50 15:50 WBC RBC Hgb 9.1 L Hct 27.1 L MCV MCH MCHC RDW Plt Count Neut % (Auto) Lymph % (Auto) [place] % (Auto) Eos % (Auto) Baso % (Auto) Neut # (Auto) Lymph # (Auto) [place] # (Auto) Eos # (Auto) Baso # (Auto) Sodium Potassium Chloride Carbon Dioxide BUN Creatinine Estimated GFR BUN/Creatinine Ratio Glucose Calcium Nasal Screen MRSA (PCR) Negative for mrsa Blood Type O Positive Antibody Screen Negative Crossmatch See Detail 10/27/18 10/27/18 05:21 05:21 WBC 5.7 RBC 2.91 L Hgb 8.3 L Hct 25.3 L MCV 87.1 MCH 28.6 MCHC 32.8 RDW 15.7 H Plt Count 197 Neut % (Auto) 60.9 Lymph % (Auto) 31.4 [place] % (Auto) 6.2 Eos % (Auto) 1.2 L Baso % (Auto) 0.3 Neut # (Auto) 3500 Lymph # (Auto) 1800 [place] # (Auto) 400 Eos # (Auto) 100 Baso # (Auto) 0 Sodium 137 Potassium 3.7 Chloride 106 Carbon Dioxide 24 BUN 22 H Creatinine 0.60 Estimated GFR > 60.0 BUN/Creatinine Ratio 36.7 H Glucose 86 Calcium 8.5 Nasal Screen MRSA (PCR) Blood Type Antibody Screen Crossmatch Discharge Plan Discharge Plan Discharge Problem: GI bleed Patient Disposition: Home Discharge comment: Follow-up with PCP at the [facility] Discharge Med Rec/Prescriptions Prescriptions: New pantoprazole [Protonix] 40 mg tablet,delayed release (DR/EC) 40 mg PO BID Qty: 60 RF: 0 Continued ascorbic acid (vitamin C) 500 MG tablet 1,000 mg PO QDAY Qty: 0 RF: 0 Iron (#SLOW RELEASE IRON) 50 mg PO QDAY Qty: 0 RF: 0 [MULTIVITAMIN ] Qty: 0 RF: 0 lisinopril 20 MG tablet 20 mg PO QDAY Qty: 0 RF: 0 turmeric 400 mg Capsule PO DAILY RF: 0 Provider Discharge Instructions Diet: Diet as Tolerated Discharge Data Attending Provider: Jennifer Loya Admit Date/Time: 10/26/18 06:30
--- NOTE | 2018-10-27 10:24 | PC.NURSE ---
Addendum entered by Maribel Brennan R.N. 10/27/18 13:58: Pt left unit at 1358 in no distress via wheelchair with all belongings, [employer] and escorted. Pt states has all belongings. Original Note: Addendum entered by Maribel Brennan R.N. 10/27/18 13:14: Reviewed written discharge instructions from Discharge summary at 1300. Pt is going to call her PCP at [facility] Monday AM for follow up appointment. Pt given Work excuse note written by Dr. Murray, copy placed in chart. Reviewed new discharge medication Protonix. No voiced concerns, pt states has all belongings. Waiting for her to pick her up for discharge. Original Note: Addendum entered by Maribel Brennan R.N. 10/27/18 11:44: Telemetry discontinued at 1015, pt going to have shower and discharging after lunch. Original Note: Day Shift- Pt A&OX4, able to make needs known. Denies pain, discomfort, nausea, respiratory distress. IVF and IV Pantoprazole infusing stopped at 1020 as pt discharging home after lunch. LEft FA PIV removed. Pt reported having a small soft tarry BM early this AM. Pt requesting shower and assisted to BR at 1020. Pt denies dizziness or light-headedness with ambulation. Tolerating clear liquid diet, will try general diet for lunch. No other voiced concerns, plan for discharge after lunch.
--- NOTE | 2018-10-27 10:32 | CM.DANOTE ---
Addendum entered by Sangeetha Lawson LPN 10/27/18 10:40: RE: insurance fax to [employer] as per weekend protocol: conferred with UR LEAH Scherer as she and Dr. Murray had discussed changing the admission status to OBS (and Niesha confirms would then not need clinical faxed). Niesha stated that she would be doing her review and then changing status as needed and that she would be faxing any needed clinical for this pt. Original Note: Discharge Planning/Care Management DCP: assessment: case received and discussed in Team Rounds. Dr. Murray stated she planned to d/c pt home today. Pt is a 58 year old female who admitted yesterday to care of the hospitalist team. Dr. Lindquist consulted and took pt yesterday for an EGD. Payer: [employer]. No PCP listed. Went to room to check in with pt. Noted her items all packed for d/c and that pt was in the bathroom. Checked in with LEAH López. Maribel reports that pt is all set to go home. Pt sees a provider at the [facility] and will call for an appt on Monday. She says that is the only followup appt that will be needed. No concerns re the d/c to home are noted. CM Discharge Assessment Start: 10/27/18 10:32 Freq: Status: Active Protocol: Document 10/27/18 10:32 ITV (Rec: 10/27/18 10:32 ITV [id number]) Discharge Planning Assessment Advance Directives? No History Provided By Patient Medical Record Prior Living Arrangements House Household Members spouse family children Review Status In Process Next Review Type Continued Stay Review
[2018-10-27 11:28] VITALS: BP 127/63; PULSE 70; RESP 18; TEMP 36.8; O2SAT 99
== END 2018-10-27 13:58 | disposition home or self-care (01) ==
LOC: ED 06:26 → AC 07:39 → ICU 10:17 → AC 10-27 09:55 → ICU 10-27 10:57
PROVIDERS: Internal Medicine; Specialist; Admitting Provider Nurse Practitioner Gerontology; Emergency Provider Emergency Medicine; Visit Provider Nurse Practitioner Gerontology
PROC: 0DJ08ZZ Inspection of Upper Intestinal Tract, Via Natural or Artificial Opening Endoscopic (ICD-10-PCS; CPT 43235; principal; 2018-10-26 15:30)
DX: D62 Acute posthemorrhagic anemia (principal); K92.1 Melena; K25.4 Chronic or unspecified gastric ulcer with hemorrhage; Z68.41 Body mass index [BMI] 40.0-44.9, adult; E66.01 Morbid (severe) obesity due to excess calories; Z98.84 Bariatric surgery status; K25.9 Gastric ulcer, unspecified as acute or chronic, without hemorrhage or perforation; K44.9 Diaphragmatic hernia without obstruction or gangrene
CPT/HCPCS: 43236; 36415; 36430; 36591; 80048; 80053; 82272; 83690; 85014; 85018; 85025; 85610; 85730; 86644; 86850; 86900; 86901; 87797; 96361; 96374; 99219; 99283; 99285; G0378; P9016; C9113; J0171; J2704

== ENCOUNTER 2023-06-04 16:20 | Emergency (ER) | payer OTHER, SELFPAY ==
[2018-10-26 07:06] VITALS: BMI 44.7
[2023-06-04 16:27] VITALS: BP 185/78; PULSE 73; RESP 16; TEMP 36.9; O2SAT 98; BMI 50.6
--- NOTE | 2023-06-04 16:32 | DI.RAD.S_ITS ---
PROCEDURE: XR FINGER LT MIN 2V INDICATIONS: jammed finger yesterday TECHNIQUE: AP hand, 2 views of the 5th finger(s) acquired. COMPARISON: None. FINDINGS: Bones: Subtle hyperdensity posterior to the 5th DIP. No suspicious bony lesions. The 5th DIP is held in slight flexion. Soft tissues: No suspicious soft tissue calcifications. Swelling of the 5th digit. IMPRESSION: The 5th DIP is held in slight flexion. Subtle hyperdensity posterior to the 5th DIP may represent small avulsion fracture. Dictated by: William Hernandez M.D. on 06/04/2023 at 17:04 Approved by: William Hernandez M.D. on 06/04/2023 at 17:06
[2023-06-04 16:54] VITALS: PULSE 72
--- NOTE | 2023-06-04 16:55 | ED.UPPEXIN ---
HPI - Extremity Injury (Upper) General Chief Complaint: Extremity Injury, Upper Stated Complaint: left pinkie injury Time Seen by Provider: 06/04/23 16:53 Source: patient Mode of arrival: Ambulatory History of Present Illness HPI narrative: Patient presents by private vehicle for evaluation left pinky injury. She tripped and fell yesterday and jammed her finger into the ground. It was bruised today and she initially went to the walk-in clinic, however they referred her to the ER because there was question of circulatory issues. There is an obvious mallet deformity of the left pinky finger. Patient denies hitting her head, denies loss of consciousness. Related Data Home Medications Medication Instructions Recorded Confirmed Iron (#SLOW RELEASE IRON) 50 mg PO QDAY ##0 11/23/11 [MULTIVITAMIN ] ##0 11/23/11 ascorbic acid (vitamin C) 500 mg 1,000 mg PO QDAY ##0 11/23/11 10/26/18 tablet lisinopril 20 mg tablet 20 mg PO QDAY ##0 12/23/17 10/26/18 turmeric 400 mg capsule PO DAILY 10/26/18 Previous Rx's Medication Instructions Recorded pantoprazole 40 mg tablet,delayed 40 mg PO BID #60 tabs 10/27/18 release (Protonix) Allergies Allergy/AdvReac Type Severity Reaction Status Date / Time iron dextran complex Allergy Severe Abdominal Verified 01/15/18 11:32 [From Dexferrum] Pain Review of Systems Review of Systems Narrative: Reports: Left pinky finger injury. All other systems negative except as marked. Patient History Medical History (Updated 06/04/23 @ 17:27 by Emerald Tillman MD) Knee pain, chronic Morbid obesity Hernia of abdominal wall Hypertension Gastric ulcer Surgical History History of hernia repair History of 3 sections H/O gastric bypass Family History Mother Prediabetes Father Unknown family medical history Brother No problems noted. Brother No problems noted. Sister No problems noted. Sister No problems noted. Social History household members: spouse, family and children Smoking Status: Never smoker alcohol intake: current substance use type: does not use Smoking Status: Never smoker alcohol intake frequency: holidays/special occasions only Substance Use Type: does not use Exam Initial Vital Signs Initial Vital Signs: Vital Signs Temperature 98.5 F 06/04/23 16:27 Pulse Rate 73 06/04/23 16:27 Respiratory Rate 16 06/04/23 16:27 Blood Pressure 185/78 H 06/04/23 16:27 Pulse Oximetry 98 06/04/23 16:27 Oxygen Delivery Method Room Air 06/04/23 16:27 Const: Awake, alert, no acute distress, nontoxic appearing MSK: Mallet deformity left pinky finger, capillary refill less than 2 seconds Skin: Warm, Dry, intact, contusion left distal pinky finger Neuro: AO x3, CN II-XII grossly intact, moves all extremities Course Course Course Narrative: Mallet deformity of left pinky finger. Possible avulsion fracture. No evidence of neurovascular compromise, capillary refill is less than 2 seconds, sensation intact and equal bilaterally. Placed in extension splint, rice instructions advised. Orders Ordered: ED Orders 06/04/23 16:32 XR finger LT min 2V Stat Vital Signs Vital signs: Vital Signs - 8 hr 06/04/23 16:27 06/04/23 16:54 Temperature 98.5 F Pulse Rate 73 Pulse Rate [Left Radial] 72 Respiratory Rate 16 Blood Pressure 185/78 H Pulse Oximetry 98 Oxygen Delivery Method Room Air Discharge Plan Departure Patient Disposition: Home Clinical Impression: Mallet deformity of little finger Instructions: DI for Mallet Finger Prescriptions: No Action ascorbic acid (vitamin C) 500 MG tablet 1,000 mg PO QDAY Qty: 0 Iron (#SLOW RELEASE IRON) 50 mg PO QDAY Qty: 0 [MULTIVITAMIN ] Qty: 0 lisinopril 20 MG tablet 20 mg PO QDAY Qty: 0 turmeric 400 mg Capsule PO DAILY Rx Instructions: unknown dose pantoprazole [Protonix] 40 mg tablet,delayed release (DR/EC) 40 mg PO BID Qty: 60 0RF Stand Alone Forms: Patient Portal/API
[2023-06-04 18:03] VITALS: BP 172/66; PULSE 76; RESP 16; TEMP 36.8; O2SAT 98
== END 2023-06-04 18:03 | disposition home or self-care (01) ==
PROVIDERS: Emergency Provider Emergency Medicine
DX: M20.012 Mallet finger of left finger(s) (principal); W23.0XXA Caught, crushed, jammed, or pinched between moving objects, initial encounter
CPT/HCPCS: 73140; 99281; 99283